=== PATIENT | female | born 1940 | race Caucasian/White ===

== ENCOUNTER 2018-01-14 07:30 | Inpatient (IN) | payer OTHER ==
[~2018-01-14] VITALS: Ht 154.9 cm; Wt 79.8 kg
[~2018-01-14 07:30] MED LIST: FUROSEMIDE20 MG; GLUCOPHAGE XR500 MG
[2018-01-14] MEDS ORDERED: [UNRECOGNIZED DRUG - OTHER] PO (08:51)
[2018-01-14] MEDS ORDERED: LIRICA PO (08:52)
[2018-01-14] MEDS ORDERED: ZOCOR20 MG PO (08:52)
[2018-01-14] MEDS ORDERED: ULTRAM50 MG PO (08:53)
[2018-01-14] MEDS ORDERED: ZANTAC300 MG PO (08:53)
[2018-01-14] MEDS ORDERED: [UNRECOGNIZED DRUG - OTHER] PO (08:53)
[2018-01-14] MEDS ORDERED: CLARITIN10 M1 PO (08:54)
[2018-01-14] MEDS ORDERED: VASERETIC 10-21 EACH PO (08:54)
[2018-01-14] MEDS ORDERED: DITROPAN5 MG PO (08:55)
[2018-01-14] MEDS ORDERED: PRILOSEC10 MG PO (08:55)
[2018-01-14] MEDS ORDERED: ASPIR 8181 MG PO (08:56)
[2018-01-14] MEDS ORDERED: ZANAFLEX2 M1 PO (08:56)
[2018-01-14] MEDS ORDERED: [UNRECOGNIZED DRUG - CODE] PO (08:57)
[2018-01-14] MEDS ORDERED: [UNRECOGNIZED DRUG - OTHER] PO (08:58)
[2018-01-14] MEDS ORDERED: [UNRECOGNIZED DRUG - OTHER] PO (08:59)
[2018-02-03] MEDS ORDERED: DUI500 PO (06:16)
[2018-02-03] MEDS ORDERED: ELIQUIS2.5 MG PO (06:16)
[2018-02-03] MEDS ORDERED: PERCOCET 5-3251 EACH PO (06:16)
== END 2018-02-03 16:49 | DRG 470 ==
LOC: O/R 02-01 05:45 → SURG 02-01 07:30
PROVIDERS: Orthopaedic Surgery
PROC: 0MNP0ZZ Release Left Knee Bursa and Ligament, Open Approach (ICD-10-PCS; 2018-02-01)
PROC: 0SRD0J9 Replacement of Left Knee Joint with Synthetic Substitute, Cemented, Open Approach (ICD-10-PCS; principal; 2018-02-01 14:30)
DX: M17.12 Unilateral primary osteoarthritis, left knee (principal); D62 Acute posthemorrhagic anemia; I10 Essential (primary) hypertension; E11.9 Type 2 diabetes mellitus without complications; M81.0 Age-related osteoporosis without current pathological fracture; E66.8 Other obesity; Z79.4 Long term (current) use of insulin

== ENCOUNTER 2020-02-07 10:13 | Inpatient (IN) | payer OTHER ==
[~2020-02-07] VITALS: Ht 154.9 cm; Wt 77.1 kg
[~2020-02-07 10:13] MED LIST changes: +ASPIR 8181 MG PO; +CLARITIN10 M1 PO; +DITROPAN5 MG PO; +DUI500 PO; +ELIQUIS2.5 MG PO; +LIRICA PO; +PERCOCET 5-3251 EACH PO; +PRILOSEC10 MG PO; +ULTRAM50 MG PO; +VASERETIC 10-21 EACH PO; +ZANAFLEX2 M1 PO; +ZANTAC300 MG PO; +ZOCOR20 MG PO; +[UNRECOGNIZED DRUG - CODE] PO; +[UNRECOGNIZED DRUG - OTHER] PO; +[UNRECOGNIZED DRUG - OTHER] PO; +[UNRECOGNIZED DRUG - OTHER] PO; +[UNRECOGNIZED DRUG - OTHER] PO
[2020-02-07] MEDS ORDERED: PLAVIX75 MG (10:45)
== END 2020-02-15 18:53 | DRG 195 ==
LOC: ER 10:13 → SEC-K 19:10 → SURH 02-09 02:18 → MEDI 02-12 18:19 → MEDJ 02-12 18:19 → MEDI 02-15 18:53
PROVIDERS: ADMIT Internal Medicine; ATTEND Internal Medicine
PROC: 3E0F7GC Introduction of Other Therapeutic Substance into Respiratory Tract, Via Natural or Artificial Opening (ICD-10-PCS; principal; 2020-02-07)
PROC: 4A033R1 Measurement of Arterial Saturation, Peripheral, Percutaneous Approach (ICD-10-PCS; 2020-02-07)
PROC: BB24ZZZ Computerized Tomography (CT Scan) of Bilateral Lungs (ICD-10-PCS; 2020-02-07)
PROC: B246ZZZ Ultrasonography of Right and Left Heart (ICD-10-PCS; 2020-02-08)
DX: J18.1 Lobar pneumonia, unspecified organism (principal); J44.9 Chronic obstructive pulmonary disease, unspecified; I10 Essential (primary) hypertension; E11.9 Type 2 diabetes mellitus without complications; J84.10 Pulmonary fibrosis, unspecified; E78.49 Other hyperlipidemia; Z20.828 Contact with and (suspected) exposure to other viral communicable diseases

== ENCOUNTER 2022-10-16 10:46 | Emergency (ER) | payer OTHER ==
[~2022-10-16] VITALS: Ht 154.9 cm; Wt 83.9 kg
[~2022-10-16 10:46] MED LIST changes: +PLAVIX75 MG
[2022-10-16] MEDS ORDERED: ANUSOL-HC25 MG RECTAL (20:18)
[2022-10-16] MEDS ORDERED: PEPCID AC20 MG PO (20:18)
== END 2022-10-16 20:27 | disposition home or self-care (01) ==
LOC: ER 10:46
DX: K62.5 Hemorrhage of anus and rectum (principal); E78.00 Pure hypercholesterolemia, unspecified; I10 Essential (primary) hypertension; K64.9 Unspecified hemorrhoids; E11.9 Type 2 diabetes mellitus without complications; Z79.84 Long term (current) use of oral hypoglycemic drugs; Z88.8 Allergy status to other drugs, medicaments and biological substances; K57.30 Diverticulosis of large intestine without perforation or abscess without bleeding

== ENCOUNTER 2022-11-07 10:00 | Emergency (ER) | payer OTHER ==
[~2022-11-07] VITALS: Ht 154.9 cm; Wt 83.9 kg
[~2022-11-07 10:00] MED LIST changes: +ANUSOL-HC25 MG RECTAL; +PEPCID AC20 MG PO
== END 2022-11-07 16:13 | disposition home or self-care (01) ==
LOC: ER 10:00
DX: J44.9 Chronic obstructive pulmonary disease, unspecified (principal); M54.9 Dorsalgia, unspecified; I11.9 Hypertensive heart disease without heart failure; E11.9 Type 2 diabetes mellitus without complications; Z79.84 Long term (current) use of oral hypoglycemic drugs; Z87.891 Personal history of nicotine dependence; Z88.8 Allergy status to other drugs, medicaments and biological substances; J45.901 Unspecified asthma with (acute) exacerbation